=== PATIENT | female | born 1980 | race Caucasian/White ===

== ENCOUNTER 2021-09-24 13:15 | Inpatient (IN) | payer MEDICAID, SELFPAY ==
[2021-09-24] VITALS (8 sets, daily range): BP systolic 102–124; BP diastolic 62–84; PULSE 65–113; RESP 16–18; TEMP 36.4–37.2; O2SAT 96–98; BMI 33.0; BMI 31.1
--- NOTE | 2021-09-24 13:21 | ED.RN ---
PT SENT IN BY [facility] IN [place]. PT IS IN A [facility] THERE. CINDY DICKENS IS THE DIRECTOR AND POINT OF CONTACT. PHONE NUMBER IS [phone]. TRANSPORTED TO FACILITY BY [facility] STAFF. Raffaele GONZALEZ RN [id number]
[2021-09-24 13:38] LABS: Bacteria 0 SEEN /hpf (None Seen); Mucous, Urine 0 SEEN /hpf (<or=2+); White Blood Cells 0 SEEN /hpf (0-5)
[2021-09-24 13:39] LABS: Color, Urine Yellow (Yellow); Glucose, Dipstick Normal (Normal); Ketone-Dipstick Negative (Negative); Leukocyte Esterase-Dipstick Negative /ul (Negative); Nitrite-Dipstick Negative (Negative); Occult Blood-Urine 10 /ul (Negative); Protein-Dipstick 15 mg/dl (Negative); Urine Bilirubin Dipstick Negative (Negative); Urine Clarity Clear (Clear); Urine Urobilinogen Normal (Normal); Urine pH 6.5 (5.0 - 8.0)
--- NOTE | 2021-09-24 13:41 | EX.ED.SAOD ---
HPI History of Present Illness Chief Complaint: Substance Abuse Informant: patient Narrative Narrative: Patient is a 41-year-old female with history of chronic back pain and alcohol abuse as well as per the patient remote history of liver failure presenting for alcohol detox. Patient states that she drinks as much as she can. She is currently [facility] is not allowed to bring alcohol there so she will go to the corner store and get the highest alcohol content beverage she can and drink it before she goes back. She states in the past week she spent $500 on alcohol there. She does have a history of DTs. She states her last drink was this morning. She states she was throwing up because she thinks she had alcohol poisoning. She currently denies any pain. She is complaining of nausea. Does smoke cigarettes, approximate pack a day. 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 No other complaints at this time. [facility] Medical History (Updated 09/24/21 @ 14:25 by Kerrie Trujillo NP, [employer]-C) Alcohol abuse Anxiety Home Medications buspirone [BuSpar] 15 mg PO TID 09/24/21 [History Last Taken Unknown] gabapentin 400 mg PO 4XD 09/24/21 [History Last Taken Unknown] olanzapine [Zyprexa] mg DAILY 09/24/21 [History Last Taken Unknown] Allergy/AdvReac Type Severity Reaction Status Date / Time ketorolac [From Toradol] Allergy Rash Verified 09/24/21 13:16 nitrofurantoin Allergy Swelling Verified 09/24/21 13:16 [From Macrobid] Family History (Updated 09/24/21 @ 14:23 by Kerrie Trujillo NP, [employer]) Mother Alcoholic cirrhosis Father Hypertension Surgical History (Updated 09/24/21 @ 14:25 by Kerrie Trujillo NP, [employer] PRINTER-C) H/O tubal ligation H/O: hysterectomy Laryngeal papilloma Social History (Updated 09/24/21 @ 14:25 by Kerrie Trujillo NP, [employer]INTER-C) Smoking Status: Current every day smoker tobacco type: cigarettes alcohol intake: current substance use type: does not use ROS ROS ED Constitutional Constitutional ED: Denies chills or fever(s) Eyes Eyes: Denies change in vision ENT ENT ED: Denies rhinorrhea or sore throat Cardiovascular Cardiovascular: Denies chest pain Respiratory/Chest Respiratory/Chest: Denies cough or dyspnea Gastrointestinal Gastrointestinal: Reports nausea and vomiting; Denies abdominal pain, constipation or diarrhea Musculoskeletal Musculoskeletal: Denies arthralgias or myalgias Integumentary Denies rash Neurologic Neurologic: Denies headache(s) or weakness Psychiatric Psychiatric: Denies depression or suicidal thoughts EXAM Physical Exam Const Vital Signs: 09/24/21 13:16 09/24/21 14:14 09/24/21 14:25 Temperature 97.6 F L 98.9 F 98.9 F Temperature Source Temporal Temporal Temporal Pulse Rate 113 H 94 84 Respiratory Rate 16 18 18 Blood Pressure 124/77 H 113/84 H 113/84 H Blood Pressure Mean 92 93 93 Blood Pressure Source Monitor Blood Pressure Position Sitting Blood Pressure Location Right Arm Pulse Ox 97 97 97 Oxygen Delivery Method Room Air Room Air Room Air Positive well nourished and well developed General Appearance ED: well developed and NAD HEENT Reports moist mucous membranes atraumatic Eyes PERRL and EOMs intact bilaterally General Eye ED: Negative for scleral icterus Neck no lymphadenopathy and supple Chest Wall inspection of chest normal Resp normal respiratory effort and clear to auscultation bilaterally Cardio regular rhythm and no murmurs Rate: tachycardic GI soft to palpation, non-tender, non-distended and no masses Extremity General Extremety ED: Negative for edema or tenderness General Extremity: Negative for edema Neuro oriented x3 Sensorium / Orientation: alert Motor Exam: Negative for general weakness Psych mental status grossly normal Mood & Affect: anxious Skin General Skin Exam: Negative for jaundice Lesions: no lesions Rashes: no rashes MDM MDM MDM Narrative Medical decision making narrative: Patient evaluated for request of alcohol detox. Patient is mildly tachycardic however she is normotensive. Is given dose of Zofran as well as oral phenobarb. Will admit for inpatient alcohol detoxification. Patient is agreeable to this plan of care. She remains hemodynamically stable in the emergency room. Lab Data Attestation: I reviewed the patient's lab results. Labs: Laboratory Results - last 24 hr 09/24/21 09/24/21 09/24/21 13:30 13:30 13:47 WBC 7.8 RBC 4.79 Hgb 14.9 Hct 43.5 MCV 90.8 MCH 31.1 MCHC 34.3 RDW Std Deviation 38.9 RDW Coeff of Michel 11.7 Plt Count 285 MPV 9.2 Immature Gran % (Auto) 0.300 Neut % (Auto) 64.5 Lymph % (Auto) 26.7 [place] % (Auto) 7.3 Eos % (Auto) 0.6 Baso % (Auto) 0.6 Absolute Neuts (auto) 5.1 Absolute Lymphs (auto) 2.09 Nucleated RBC % 0 Sodium Potassium Chloride Carbon Dioxide Anion Gap BUN Creatinine Estim Creat Clear Calc Est GFR (MDRD) Af Amer Est GFR (MDRD) Non-Af BUN/Creatinine Ratio Glucose Calcium Total Bilirubin AST ALT Alkaline Phosphatase Total Protein Albumin Globulin Albumin/Globulin Ratio Serum , Qual Urine Color Yellow Urine Clarity Clear Urine pH 6.5 Ur Specific [place] 1.010 Urine Protein 15 H Urine Glucose (UA) Normal Urine Ketones Negative Urine Occult Blood 10 H Urine Nitrite Negative Urine Bilirubin Negative Urine Urobilinogen Normal Ur Leukocyte Esterase Negative Urine RBC 0-5 SEEN Urine WBC 0 SEEN Ur Squamous Epith Cells 0-5 SEEN Urine Bacteria 0 SEEN Urine Mucus 0 SEEN Urine Opiates Screen NEGATIVE Urine Methadone Screen NEGATIVE Ur Barbiturates Screen NEGATIVE Ur Phencyclidine Scrn NEGATIVE Ur Amphetamines Screen NEGATIVE MDMA (Ecstasy) Screen NEGATIVE U Benzodiazepines Scrn NEGATIVE Urine Cocaine Screen NEGATIVE U Cannabinoids Screen NEGATIVE Ur Drug Screen Comment Ethyl Alcohol 09/24/21 09/24/21 09/24/21 13:47 13:47 13:47 WBC RBC Hgb Hct MCV MCH MCHC RDW Std Deviation RDW Coeff of Michel Plt Count MPV Immature Gran % (Auto) Neut % (Auto) Lymph % (Auto) [place] % (Auto) Eos % (Auto) Baso % (Auto) Absolute Neuts (auto) Absolute Lymphs (auto) Nucleated RBC % Sodium 137 Potassium 3.6 Chloride 103 Carbon Dioxide 27.0 Anion Gap 7 BUN 13 Creatinine 0.84 Estim Creat Clear Calc 76.11 Est GFR (MDRD) Af Amer 96 Est GFR (MDRD) Non-Af 79 BUN/Creatinine Ratio 15.4 Glucose 97 Calcium 8.8 Total Bilirubin 0.30 AST 25 ALT 28 Alkaline Phosphatase 60 Total Protein 7.9 Albumin 3.8 Globulin 4.1 Albumin/Globulin Ratio 0.9 Serum , Qual NEGATIVE Urine Color Urine Clarity Urine pH Ur Specific [place] Urine Protein Urine Glucose (UA) Urine Ketones Urine Occult Blood Urine Nitrite Urine Bilirubin Urine Urobilinogen Ur Leukocyte Esterase Urine RBC Urine WBC Ur Squamous Epith Cells Urine Bacteria Urine Mucus Urine Opiates Screen Urine Methadone Screen Ur Barbiturates Screen Ur Phencyclidine Scrn Ur Amphetamines Screen MDMA (Ecstasy) Screen U Benzodiazepines Scrn Urine Cocaine Screen U Cannabinoids Screen Ur Drug Screen Comment Ethyl Alcohol 21.0 Discharge Plan Dx/Rx/DC Orders Clinical Impression: Alcohol abuse, Tachycardia Disposition Disposition: Acute Care Hospital [facility]
[2021-09-24 13:45] LABS: Red Blood Cells-Urine 0-5 SEEN /hpf (0-5); Squamous Epithelial Cells - UA 0-5 SEEN /hpf (5-10)
[2021-09-24] MEDS: Ondansetron 4 MG/2 ML Vial IV (13:46)
[2021-09-24] MEDS: Phenobarbital 32.4 MG Tablet 97.2 MG PO (13:52)
[2021-09-24 13:57] LABS: Absolute Lymphocyte Count 2.09 X10^3/uL (0.83-4.51); Absolute Neutrophil Count 5.1 X10^3/uL (2.0-7.7); Basophil# 0.05 X10^3/uL; Basophil% 0.6 % (0-1); Eosinophil# 0.05 X10^3/uL; Eosinophils% 0.6 % (0-5); Hematocrit 43.5 % (37-47); Hemoglobin 14.9 g/dL (12.0-15.0); Lymphocyte # 2.09 X10^3/ul (0.83-4.51); Lymphocyte % 26.7 % (19-41); Mean Corp Hgb Conc 34.3 g/dL (32-36); Mean Corpuscular Hgb 31.1 pg (27.0-32.0); Mean Corpuscular Volume 90.8 fL (81-99); Mean Platelet Vol. 9.2 fl (6.2-12.0); Monocyte# 0.57 X10^3/uL; Monocyte% 7.3 % (0-10); NRBC Flagged by Analyzer 0 % (0-5); Neutrophil # 5.06 X10^3/uL (2.7-7.7); Neutrophil % 64.5 % (47-70); Platelet Count 285 K/mm3 (150-450); RBC Distribution Width CV 11.7 % (11.6-14.6); RBC Distribution Width SD 38.9 fl (35.1-43.9); Red Blood Count 4.79 M/mm3 (4.2-5.4); White Blood Count 7.8 K/mm3 (4.4-11.0)
[2021-09-24 13:58] LABS: Amphetamine Urine VISTA NEGATIVE (<1000 ng/mL); Barbiturate Urine VISTA NEGATIVE (< 200 ng/mL); Benzodiazepine Urine VISTA NEGATIVE (< 200 ng/mL); Cocaine Urine VISTA NEGATIVE (< 300 ng/mL); Ecstacy Urine VISTA NEGATIVE (< 500 ng/mL); Methadone Urine VISTA NEGATIVE (< 300 ng/mL); PCP Urine VISTA NEGATIVE (< 25 ng/mL); THC Urine VISTA NEGATIVE (< 50 ng/mL); Vista UDS pH Range 6
[2021-09-24 14:09] LABS: Internal QC Validated? YES +Cl - CLEAR BKGD; Pregnancy, Serum, hCG Quali. NEGATIVE Negative
--- NOTE | 2021-09-24 14:14 | PCM.HP.STD ---
Documented by User: Kerrie Trujillo NP, [employer] 09/24/21 14:33 HPI - General HPI Narrative SUSIE PITTS, is a 41 F who presents to the emergency room requesting detox from alcohol. Patient reports an extensive history of alcohol abuse starting at age 14. She states she has been through several detox programs including inpatient treatment program. Patient is unable to state exactly how much she drinks as she states she drinks till I get drunk. Reports she goes to the [employer] and buys vodka as well as mixed drinks and beer. Reports spending about $500/week on alcohol. Currently lives in [facility] for the past 40-50 days. She reports a history of liver failure. Currently reports nausea and tremors. Her last drink was at 8 this morning. Reports history of seizure and DTs with withdrawal. Patient reports a past medical history of chronic alcohol abuse, tobacco dependence, laryngeal papilloma status post multiple surgeries, PTSD/bipolar depression/anxiety. [facility] Medical History Alcohol abuse Anxiety Bipolar disorder Depression Smoker Home Medications aspirin-caffeine [Jordyn Back and Body] 2 tab PO DAILY PRN 09/24/21 [History Last Taken 09/22/21] buspirone [BuSpar] 15 mg PO BID 09/24/21 [History Last Taken 09/23/21] gabapentin 400 mg PO TID 09/24/21 [History Last Taken 09/23/21] olanzapine [Zyprexa] 5 mg PO BID 09/24/21 [History Last Taken 09/22/21] Allergy/AdvReac Type Severity Reaction Status Date / Time ketorolac [From Toradol] Allergy Rash Verified 09/24/21 13:16 nitrofurantoin Allergy Swelling Verified 09/24/21 13:16 [From Macrobid] Family History (Updated 09/24/21 @ 14:23 by Kerrie Trujillo NP, [employer]) Mother Alcoholic cirrhosis Father Hypertension Surgical History (Updated 09/24/21 @ 14:25 by Kerrie Trujillo NP, [employer]) H/O tubal ligation H/O: hysterectomy Laryngeal papilloma Social History (Updated 09/24/21 @ 14:25 by Kerrie Trujillo NP, [employer]) Smoking Status: Current every day smoker tobacco type: cigarettes alcohol intake: current substance use type: does not use ROS Constitutional Constitutional: Denies change in weight, chills, fatigue, fever(s) or weakness Cardiovascular Cardiovascular: Denies chest pain, edema, lightheadedness, palpitations or syncope Respiratory/Chest Respiratory/Chest: Denies cough, dyspnea, productive cough, shortness of breath at rest, shortness of breath with exertion or wheezing Gastrointestinal Gastrointestinal: Reports nausea; Denies abdominal pain, constipation, diarrhea or vomiting Genitourinary Genitourinary: Denies burning urination, difficulty urinating, dysuria, hematuria, urinary frequency, urinary incontinence or urinary urgency Musculoskeletal Musculoskeletal: Denies back pain, joint pain or muscle weakness Integumentary Integumentary: Denies erythema, lesions, rash or wounds Neurologic Neurologic: Denies abnormal speech, confusion, dizziness, focal weakness, numbness, paresthesias, seizure-like activity or syncope Psychiatric Psychiatric: Reports anxiety and depression Hematologic/Lymphatic Hematologic/Lymphatic: Denies anemia, easy bleeding or easy bruising Allergic/Immunologic Allergic/Immunologic: Denies hives or asthma Vital Signs Vital Signs Vital Signs: 09/24/21 13:16 Temperature 97.6 F L Temperature Source Temporal Pulse Rate 113 H Respiratory Rate 16 Blood Pressure 124/77 H Blood Pressure Mean 92 Pulse Ox 97 Oxygen Delivery Method Room Air Weight Weight: 192 lb 14.472 oz Body Mass Index (BMI) 33.0 Physical Exam Const alert and oriented x3 Constitutional Narrative: Appears older than stated age Orientation / Consciousness: awake, oriented to person, oriented to place and oriented to time HEENT normocephalic Mouth: dry mucous membranes Eyes PERRL, EOMs intact bilaterally and conjunctivae normal Neck no lymphadenopathy Resp normal respiratory effort and clear to auscultation bilaterally Cardio regular rate, regular rhythm and no murmurs Peripheral Pulses: pulses 2+ throughout GI normal to inspection, nondistended, normoactive bowel sounds, non-tender and non-distended Extremity normal to inspection Skin no rashes or lesions noted Lesions: no lesions Rashes: no rashes Trauma: no lacerations or abrasions Neuro CN's II-XII intact bilaterally, no focal motor deficits, no sensory deficits noted and deep tendon reflexes 2+ bilaterally Psych mental status grossly normal Mood & Affect: anxious Results Lab / Micro Data Result Diagrams: 09/24/21 13:47 09/24/21 13:47 Labs: Laboratory Results - last 24 hr 09/24/21 13:30: Urine Opiates Screen NEGATIVE, Urine Methadone Screen NEGATIVE, Ur Barbiturates Screen NEGATIVE, Ur Phencyclidine Scrn NEGATIVE, Ur Amphetamines Screen NEGATIVE, MDMA (Ecstasy) Screen NEGATIVE, U Benzodiazepines Scrn NEGATIVE, Urine Cocaine Screen NEGATIVE, U Cannabinoids Screen NEGATIVE, Ur Drug Screen Comment 09/24/21 13:30: Urine Color Yellow, Urine Clarity Clear, Urine pH 6.5, Ur Specific [place] 1.010, Urine Protein 15 H, Urine Glucose (UA) Normal, Urine Ketones Negative, Urine Occult Blood 10 H, Urine Nitrite Negative, Urine Bilirubin Negative, Urine Urobilinogen Normal, Ur Leukocyte Esterase Negative, Urine RBC 0-5 SEEN, Urine WBC 0 SEEN, Ur Squamous Epith Cells 0-5 SEEN, Urine Bacteria 0 SEEN, Urine Mucus 0 SEEN 09/24/21 13:47: WBC 7.8, RBC 4.79, Hgb 14.9, Hct 43.5, MCV 90.8, MCH 31.1, MCHC 34.3, RDW Std Deviation 38.9, RDW Coeff of Michel 11.7, Plt Count 285, MPV 9.2, Immature Gran % (Auto) 0.300, Neut % (Auto) 64.5, Lymph % (Auto) 26.7, [place] % (Auto) 7.3, Eos % (Auto) 0.6, Baso % (Auto) 0.6, Absolute Neuts (auto) 5.1, Absolute Lymphs (auto) 2.09, Nucleated RBC % 0 09/24/21 13:47: Serum , Qual NEGATIVE Assessment & Plan Assessment/Plan (1) Alcohol abuse: PLAN: 1. Acute alcohol withdrawal, chronic alcohol dependence- medical stabilization per protocol. PRN regimen for somatic complaints. CIWA/Ativan protocol. Tox screen negative. Addiction medicine consult. 2. Tobacco dependence- encouraged cessation. Nicotine gum per request. 3. Laryngeal papilloma status post multiple surgeries 4. PTSD/bipolar depression/anxiety-patient states previously followed with psychiatry, recommend continued outpatient follow-up. DVT prophylaxis-not indicated This patient was seen by ROSANNA Blancas under the supervision of Dr. Metcalf. Time spent examining patient, reviewing data and subsequent management of care: 18 minutes Documented by User: Dr. Fernando Metcalf DO 09/24/21 17:08 HPI - General General Date of Admission: 09/24/21 [facility] Medical History Alcohol abuse Anxiety Bipolar disorder Depression Smoker Home Medications aspirin-caffeine [Jordyn Back and Body] 2 tab PO DAILY PRN 09/24/21 [History Last Taken 09/22/21] buspirone [BuSpar] 15 mg PO BID 09/24/21 [History Last Taken 09/23/21] gabapentin 400 mg PO TID 09/24/21 [History Last Taken 09/23/21] olanzapine [Zyprexa] 5 mg PO BID 09/24/21 [History Last Taken 09/22/21] Allergy/AdvReac Type Severity Reaction Status Date / Time ketorolac [From Toradol] Allergy Rash Verified 09/24/21 13:16 nitrofurantoin Allergy Swelling Verified 09/24/21 13:16 [From Macrobid] Family History (Updated 09/24/21 @ 14:23 by Kerrie Trujillo [employer] TILE SETTER, [employer]C) Mother Alcoholic cirrhosis Father Hypertension Surgical History (Updated 09/24/21 @ 14:25 by Kerrie Trujillo NP, [employer]) H/O tubal ligation H/O: hysterectomy Laryngeal papilloma Social History (Updated 09/24/21 @ 14:25 by Kerrie Trujillo [employer]LE [employer]TER, [employer]C) Smoking Status: Current every day smoker tobacco type: cigarettes alcohol intake: current substance use type: does not use Results Lab / Micro Data Result Diagrams: 09/24/21 13:47 09/24/21 13:47 Charges/Coding Addendum Addendum: Patient was seen and examined dependently of Kerrie Trujillo today, she came to the emergency room today requesting services for alcohol detox. Patient is very vague on the amount of alcohol that she drinks on a daily basis, she states she can go through fifth of low proof vodka and 1 afternoon easily. Patient also admits to drinking beer. Patient denies using any other drugs of abuse. Patient complains of feeling anxious and nervous at time of my examination. On examination she appeared in good health and spirits, she does not appear to be in any distress. Vital signs as documented. Skin warm and dry and without overt rashes. Neck without JVD, thyroid appears normal, trachea is midline, neck is supple. Lungs clear, normal air movement was noted. Heart exam notable for regular rhythm, normal sounds and absence of murmurs, rubs or gallops. Abdomen unremarkable and without evidence of organomegaly, masses, or abdominal aortic enlargement, bowel sounds are present in all 4 quadrants, no abdominal tenderness was noted. Extremities nonedematous, no cyanosis was noted, no clubbing was noted. Neuro: Cranial nerves II through XII are grossly intact, no focal motor deficits were noted, sensation to light touch and pinprick is intact, motor exam 5/5 throughout. Psych: Patient is alert and oriented x3, patient appears anxious and has forced speech Impression: #1 acute alcohol withdrawal-patient will be admitted to [facility] [place], orders were entered using the alcohol detox order set, she will need to be seen by addiction licensed social worker tomorrow #2 chronic alcoholism-patient states she has been through detox once before but it has been several years ago and it was not at this hospital. I reviewed Kerrie Trujillo's history and physical including her medical assessment and plan of care and with the above additions endorse it. Total clinical time spent by myself addressing the patient's issues, reviewing the data, and collaborating with patient's care team: 32 minutes Visit Charges Inpatient E&M: 55596 Init Hosp L2
[2021-09-24 14:17] LABS: ALB/GLOB Ratio 0.9 RATIO (0.9-2.4); AST(SGOT) 25 U/L (15-37); Alanine Aminotransfer ALT/SGPT 28 U/L (13-56); Albumin, Serum 3.8 g/dL (3.2-5.0); Alkaline Phosphatase 60 U/L (45-117); Anion Gap 7 (5-15); BUN 13 mg/dL (7-18); BUN/Creat Ratio 15.4 RATIO (10-20); Calcium,Total 8.8 mg/dL (8.5-10.1); Chloride 103 mmol/L (98-107); Creatinine, Serum 0.84 mg/dL (0.55-1.02); EST Glomerular Filtration Rate 79 mL/min (>60); Est Glom Filt Rate - Afr Amer 96 mL/min (>60); Estimated Creatinine Clearance 76.11 ml/min; Globulin 4.1 g/dL (2.2-4.2); Glucose 97 mg/dL (74-106); Potassium 3.6 mmol/L (3.5-5.1); Protein, Total 7.9 g/dL (6.4-8.2); Sodium Level 137 mmol/L (136-145)
--- NOTE | 2021-09-24 15:01 | CASEMGMT ---
Social Work Telephone call to addiction therapies, [facility]. Voicemail left that patient has been admitted to [facility]. Romario Ham MSW, [facility]
[2021-09-24] MEDS: Ondansetron 8 MG Tablet PO (17:09)
[2021-09-24] MEDS: Dicyclomine 10 MG Capsule 20 MG PO (17:10)
[2021-09-24] MEDS: Gabapentin 300 MG Capsule PO (17:10)
[2021-09-24] MEDS: LORazepam 1 MG Tablet 2 MG PO ×2 (17:11→20:47)
[2021-09-24] MEDS: Phenobarbital 32.4 MG Tablet 64.8 MG PO ×3 (17:13→23:40)
[2021-09-24] MEDS: hydrOXYzine PAM 25 MG Capsule 50 MG PO ×2 (18:20→23:40)
[2021-09-24] MEDS: Loperamide 2 MG Capsule PO (18:20)
[2021-09-24] MEDS: traZODone 100 MG Tablet PO (20:47)
[2021-09-24] MEDS: busPIRone 15 MG TABLET PO (20:48)
[2021-09-24] MEDS: Nicotine Polacrilex 2 MG GUM PO (20:49)
[2021-09-25] VITALS (7 sets, daily range): BP systolic 103–117; BP diastolic 60–75; PULSE 70–81; RESP 16–18; TEMP 36.6–36.9; O2SAT 94–98
[2021-09-25] MEDS: Phenobarbital 32.4 MG Tablet 64.8 MG PO ×5 (04:11→20:18)
[2021-09-25] MEDS: Ondansetron 8 MG Tablet PO (04:11)
[2021-09-25] MEDS: Gabapentin 300 MG Capsule PO ×2 (04:11→16:24)
[2021-09-25] MEDS: busPIRone 15 MG TABLET PO ×3 (06:14→20:30)
[2021-09-25] MEDS: Nicotine Polacrilex 2 MG GUM PO ×4 (08:52→20:40)
[2021-09-25] MEDS: Thiamine Hydrochloride 100 MG Tablet PO (09:00)
[2021-09-25] MEDS: hydrOXYzine PAM 25 MG Capsule 50 MG PO ×3 (09:00→20:19)
[2021-09-25] MEDS: OLANZapine 5 MG/TAB TAB.RAPDIS PO (09:01)
[2021-09-25] MEDS: Folic Acid 1 MG Tablet PO (09:01)
--- NOTE | 2021-09-25 10:44 | PN.HOSP_ITS ---
Documented by User: Ronaldo DYER 09/25/21 10:53 Subjective Subjective Patient is a 41-year-old female comfortably resting in bed, alert and oriented x3. Patient reports only mild withdrawal symptoms with tremors and nausea. Reports that these symptoms are controlled with current medications. Does not appear in acute distress. Objective Data Objective Data Vital Signs: Vital Signs Temp Pulse Resp BP Pulse Ox 97.9 F 80 18 116/60 94 09/25/21 08:44 09/25/21 08:44 09/25/21 08:44 09/25/21 08:44 09/25/21 08:44 Oxygen Delivery Method Room Air Weight: 181 lb 3.52 oz Body Mass Index (BMI) 31.1 Intake & Output: Intake and Output for Last 24 Hours 09/23/21 09/24/21 09/25/21 23:59 23:59 23:59 Intake Total 1000 / 1000 Balance 1000 / 1000 Lab / Micro Data Result Diagrams: 09/24/21 13:47 09/24/21 13:47 Labs: Laboratory Results - last 24 hr 09/24/21 13:30: Urine Opiates Screen NEGATIVE, Urine Methadone Screen NEGATIVE, Ur Barbiturates Screen NEGATIVE, Ur Phencyclidine Scrn NEGATIVE, Ur Amphetamines Screen NEGATIVE, MDMA (Ecstasy) Screen NEGATIVE, U Benzodiazepines Scrn NEGATIVE, Urine Cocaine Screen NEGATIVE, U Cannabinoids Screen NEGATIVE, Ur Drug Screen Comment 09/24/21 13:30: Urine Color Yellow, Urine Clarity Clear, Urine pH 6.5, Ur Specific [place] 1.010, Urine Protein 15 H, Urine Glucose (UA) Normal, Urine Ketones Negative, Urine Occult Blood 10 H, Urine Nitrite Negative, Urine Bilirubin Negative, Urine Urobilinogen Normal, Ur Leukocyte Esterase Negative, Urine RBC 0-5 SEEN, Urine WBC 0 SEEN, Ur Squamous Epith Cells 0-5 SEEN, Urine Bacteria 0 SEEN, Urine Mucus 0 SEEN 09/24/21 13:47: WBC 7.8, RBC 4.79, Hgb 14.9, Hct 43.5, MCV 90.8, MCH 31.1, MCHC 34.3, RDW Std Deviation 38.9, RDW Coeff of Michel 11.7, Plt Count 285, MPV 9.2, Immature Gran % (Auto) 0.300, Neut % (Auto) 64.5, Lymph % (Auto) 26.7, [place] % (Auto) 7.3, Eos % (Auto) 0.6, Baso % (Auto) 0.6, Absolute Neuts (auto) 5.1, Absolute Lymphs (auto) 2.09, Nucleated RBC % 0 09/24/21 13:47: Serum , Qual NEGATIVE 09/24/21 13:47: Sodium 137, Potassium 3.6, Chloride 103, Carbon Dioxide 27.0, A nion Gap 7, BUN 13, Creatinine 0.84, Estim Creat Clear Calc 76.11, Est GFR (MDRD) Af Amer 96, Est GFR (MDRD) Non-Af 79, BUN/Creatinine Ratio 15.4, Glucose 97, Calcium 8.8, Total Bilirubin 0.30, AST 25, ALT 28, Alkaline Phosphatase 60, Total Protein 7.9, Albumin 3.8, Globulin 4.1, Albumin/Globulin Ratio 0.9 09/24/21 13:47: Ethyl Alcohol 21.0 Physical Exam Const alert, oriented x3 and no apparent distress HEENT head/scalp atraumatic and moist oral mucous membranes Head and Scalp: normocephalic Eyes PERRL, EOMs intact bilaterally and conjunctivae normal Neck no lymphadenopathy, supple and no JVD Resp normal respiratory effort, no retractions and no use of accessory muscles Cardio regular rate, regular rhythm and no JVD GI normal to inspection, nondistended, normoactive bowel sounds and soft to palpation Extremity normal to inspection Skin no rashes or lesions noted, no wounds and skin turgor normal Neuro CN's II-XII intact bilaterally Psych affect normal Assessment & Plan Assessment/Plan (1) Alcohol abuse: PLAN: Day 1 Discharge planning: Current plan is for patient to discharge home when medically ready. 1) acute alcohol withdrawal/chronic alcohol abuse CIWA-AR score 9. Patient reports that her withdrawal symptoms are well controlled on current regimen and only reports mild tremors and nausea. Addiction medicine consult ordered, continue phenobarbital taper taper and folic acid/thiamine supplementation. As needed medications ordered. 2) tobacco abuse Encourage cessation, nicotine patch ordered. 3) PTSD/bipolar disorder/anxiety Continue buspirone, recommend outpatient psychiatry follow-up. DVT prophylaxis -low risk, not indicated Patient seen by Ronaldo James PA-C, under the supervision of Dr. Lara. Time spent on patient care: 8 minutes. Documented by User: Dr. Gita Lara DO 09/25/21 13:49 Subjective Subjective This patient was seen in conjunction with MANISHA Henson. The following represents my own independent history and physical examination. Please see below for addendum the above. Patient states she is still feeling pretty poorly with significant anxiety and tremulousness. She indicates she would like to have outpatient rehab after detox is completed. Awaiting 180 visit. No specific complaints. Denies nausea vomiting or diarrhea. Objective Data Lab / Micro Data Result Diagrams: 09/24/21 13:47 09/24/21 13:47 Physical Exam Const alert, oriented x3 and no apparent distress Constitutional Narrative: Obese middle-aged white female lying in bed, appears comfortable nontoxic Exam Limitations: no limitations Nutritional Appearance: obese HEENT head/scalp atraumatic and moist oral mucous membranes Head and Scalp: normocephalic Resp normal respiratory effort, no retractions, no use of accessory muscles and clear to auscultation bilaterally Auscultation: Negative for crackles, rales, rhonchi or wheezes Cardio regular rate, regular rhythm, S1 normal heart sound, S2 normal heart sound, no murmurs, no rub, no gallops, no clicks and no JVD GI normal to inspection, nondistended, normoactive bowel sounds, soft to palpation, non-tender and non-distended Extremity no clubbing, cyanosis or edema Peripheral Pulses: Yes pulses 2+ throughout Neuro oriented x3, moves all extremities and no focal motor deficits Neuro Narrative: Mild fine tremor Sensorium / Orientation: awake and alert Speech: speech normal Psych Psych Narrative: Affect is flat Assessment & Plan Assessment/Plan (1) Alcohol abuse: PLAN: Assessment: Acute alcohol withdrawal Chronic alcohol abuse Tobacco abuse PTSD Bipolar disorder Obesity Plan: -Continue phenobarbital taper -Continue supportive medications -Awaiting 180 input -Nicotine patch available Charges/Coding Visit Charges Inpatient E&M: 21416 Subs Hosp L2
--- NOTE | 2021-09-25 15:12 | CHAPLAIN ---
Type of Pastoral Visit _x__ Initial Visit ___ Follow-up Visit ___ On-call Visit ___ General Patient Visit ___ Spiritual Assessment ___ Family Conference ___ Bereavement ___ Rapid Response ___ Code Blue ___ Other (describe below) Pastoral Care Referral From _x__ Patient ___ Family ___ Nurse ___ Physician ___ Lapel Padder Blindstitch ___ Manufacturing Maintenance Mechanic ___ Other (describe below) Sacrament/Intervention ___ Active listening ___ Anointing ___ Hindu ___ Bereavement ___ Communion ___ Crys exploration ___ ___ Life review ___ Prayer ___ Reconciliation ___ Sacrament of Sick _x__ Supportive presence ___ Wedding ___ Other (describe below) Pastoral Comments offer of support and presence given to patient; pt voice is very weak and she is lying down and turned away; pt states that she would like to wait for a visit and is very tired; pt expresses thanks for the offer
[2021-09-25] MEDS: 0.9% Saline Lock 10 ML Syringe IV (15:15)
--- NOTE | 2021-09-25 15:38 | ADDICTION ---
This hand sign writer met with PT to conduct ASAM, MSE, AUDIT, DUDIT assessments and to plan for d/c. PT A+Ox4 and participated actively. All assessments completed and placed in PT's chart. PT plans to f/u with [facility] for follow-up treatment services, however she reported that she wanted to call and make an appointment herself. Phone number was given. PT did not indicate a need for transportation post d/c from [facility].
[2021-09-25] MEDS: LORazepam 1 MG Tablet 2 MG PO (20:29)
[2021-09-26] MEDS: Phenobarbital 32.4 MG Tablet 64.8 MG PO ×6 (00:41→20:41)
[2021-09-26 04:47] LABS: Absolute Neutrophil Count 3.7 X10^3/uL (2.0-7.7); Basophil# 0.05 X10^3/uL; Basophil% 0.7 % (0-1); Eosinophil# 0.13 X10^3/uL; Eosinophils% 1.9 % (0-5); Hematocrit 39.1 % (37-47); Lymphocyte % 35.6 % (19-41); Mean Corp Hgb Conc 33.2 g/dL (32-36); Mean Corpuscular Hgb 31.2 pg (27.0-32.0); Mean Corpuscular Volume 93.8 fL (81-99); Mean Platelet Vol. 9.6 fl (6.2-12.0); Monocyte# 0.47 X10^3/uL; NRBC Flagged by Analyzer 0 % (0-5); Neutrophil # 3.68 X10^3/uL (2.7-7.7); Neutrophil % 54.5 % (47-70); Platelet Count 204 K/mm3 (150-450); RBC Distribution Width CV 11.7 % (11.6-14.6); RBC Distribution Width SD 40.2 fl (35.1-43.9); Red Blood Count 4.17 M/mm3 (4.2-5.4); White Blood Count 6.8 K/mm3 (4.4-11.0)
[2021-09-26 05:06] LABS: Anion Gap 5 (5-15); BUN 16 mg/dL (7-18); BUN/Creat Ratio 16.8 RATIO (10-20); Calcium,Total 8.1 mg/dL (8.5-10.1); Chloride 108 mmol/L (98-107); Creatinine, Serum 0.96 mg/dL (0.55-1.02); EST Glomerular Filtration Rate 68 mL/min (>60); Est Glom Filt Rate - Afr Amer 83 mL/min (>60); Estimated Creatinine Clearance 66.59 ml/min; Glucose 120 mg/dL (74-106); Potassium 3.6 mmol/L (3.5-5.1); Sodium Level 137 mmol/L (136-145)
[2021-09-26] MEDS: busPIRone 15 MG TABLET PO ×3 (05:19→21:03)
[2021-09-26 05:23] VITALS: BP 109/66; PULSE 75; RESP 17; TEMP 36.6; O2SAT 99
--- NOTE | 2021-09-26 07:35 | PCM.PN.HOSP ---
Subjective Subjective Follow-up for acute alcohol withdrawal syndrome Patient complain of anxiety restlessness. Bowel spasm abdominal pain. Chronic muscle aches. Objective Data Objective Data Vital Signs: Vital Signs Temp Pulse Resp BP Pulse Ox 97.8 F 75 17 109/66 99 09/26/21 05:23 09/26/21 05:23 09/26/21 05:23 09/26/21 05:23 09/26/21 05:23 Oxygen Delivery Method Room Air Weight: 181 lb 3.52 oz Body Mass Index (BMI) 31.1 Intake & Output: Intake and Output for Last 24 Hours 09/24/21 09/25/21 09/26/21 23:59 23:59 23:59 Intake Total 1000 / 1000 Balance 1000 / 1000 Medical Nutrition Assessment Dietitian: Malnutrition Criteria Met Start: 09/25/21 11:54 Freq: Status: Active Protocol: Document 09/25/21 11:56 RMA (Rec: 09/25/21 11:56 RMA [id number]) Nutrition Malnutrition Evidence of Malnutrition Exists Yes Malnutrition (severe): Social/Behavioral/ Environmental Evidenced By Suboptimal Energy Intake ( Severe),Weight Loss (Severe) Clinical Problem Chronic Disease or Condition Related Malnutrition Etiology Severe protein-calorie malnutrition in the context of social circumstance related to inadequate oral intake and alcohol abuse Signs/Symptoms as evidenced by ~10% wt loss x past 1-2 months per patient report and PO meeting less than 50% estimated nutrition needs Status Active Problem Recommendation Dietitian Recommendations/Changes Continue regular diet with snacks between meals as per ALMA Early. ONS if PO fails at meals, pt does not want any at this time . Encouraged increased intake of milk and chocolate milk since patient is refusing ensure. Lab / Micro Data Result Diagrams: 09/26/21 04:19 09/26/21 04:19 Labs: Laboratory Results - last 24 hr 09/26/21 04:19: WBC 6.8, RBC 4.17 L, Hgb 13.0, Hct 39.1, MCV 93.8, MCH 31.2, MCHC 33.2, RDW Std Deviation 40.2, RDW Coeff of Michel 11.7, Plt Count 204, MPV 9.6, Immature Gran % (Auto) 0.300, Neut % (Auto) 54.5, Lymph % (Auto) 35.6, [place] % (Auto) 7.0, Eos % (Auto) 1.9, Baso % (Auto) 0.7, Absolute Neuts (auto) 3.7, Absolute Lymphs (auto) 2.40, Nucleated RBC % 0 09/26/21 04:19: Sodium 137, Potassium 3.6, Chloride 108 H, Carbon Dioxide 24.0, Anion Gap 5, BUN 16, Creatinine 0.96, Estim Creat Clear Calc 66.59, Est GFR (MDRD) Af Amer 83, Est GFR (MDRD) Non-Af 68, BUN/Creatinine Ratio 16.8, Glucose 120 H, Calcium 8.1 L Physical Exam Narrative Physical exam General: Alert, Oriented x3, Cooperative HEENT: Atraumatic, PERRLA, EOMI, Normocephalic Oral: No Gingival or Mucosal Lesions/ Ulcerations Neck: Supple, No JVD, Negative Carotid Bruits Lungs: Air entry diminished in bilateral lung bases. No crepitation/rhonchi Cardiovascular: Regular rate, Regular Rhythm, Normal S1, Normal S2, No murmurs Abdomen: Bowel Sounds Present, Soft, Non Tender, Non-Distended : No renal angle tenderness. No suprapubic tenderness. Extremities: No edema, Capillary Refill Less than 3 Seconds Skin: No rashes, No breakdown Musculoskeletal: No Tenderness to Palpation of Joints or Extremities Neurological: Cranial nerves II-XII grossly intact, DTR 2+/4 and Symmetrical, Neuro grossly intact Psych/Mental Status: Flat affect. Assessment & Plan Assessment/Plan (1) Alcohol abuse: PLAN: 1. Acute alcohol withdrawal syndrome with chronic alcohol use disorder with dependence and tolerance: Patient is being admitted on Medr floor. On phenobarbitone along with other adjunctive supportive medications as needed for control of symptoms. 180s been consulted. On nicotine patch. On CIWA monitoring 2. Patient also with history of chronic nicotine use/cigarette smoking, PTSD, bipolar disorder and mild obesity grade 1. 3. DVT prophylaxis, low risk: Early ambulation encouraged. No prophylaxis indicated Charges/Coding Visit Charges Inpatient E&M: 45923 Subs Hosp L2
[2021-09-26 08:45] VITALS: BP 111/66; PULSE 81; RESP 18; TEMP 36.4; O2SAT 97
[2021-09-26] MEDS: Thiamine Hydrochloride 100 MG Tablet PO (08:49)
[2021-09-26] MEDS: Folic Acid 1 MG Tablet PO (08:49)
[2021-09-26] MEDS: Nicotine Polacrilex 2 MG GUM PO ×3 (08:50→21:05)
[2021-09-26] MEDS: OLANZapine 5 MG/TAB TAB.RAPDIS PO (08:50)
[2021-09-26] MEDS: LORazepam 1 MG Tablet 2 MG PO ×2 (08:58→16:53)
--- NOTE | 2021-09-26 15:10 | CHAPLAIN ---
Type of Pastoral Visit ___ Initial Visit ___ Follow-up Visit ___ On-call Visit ___ General Patient Visit ___ Spiritual Assessment ___ Family Conference ___ Bereavement ___ Rapid Response ___ Code Blue ___ Other (describe below) Pastoral Care Referral From ___ Patient ___ Family ___ Nurse ___ Physician ___ Passenger Car Conductor ___ Offset Plate Preparation Supervisor ___ Other (describe below) Sacrament/Intervention ___ Active listening ___ Anointing ___ Yazidism ___ Bereavement ___ Communion ___ Crys exploration ___ ___ Life review ___ Prayer ___ Reconciliation ___ Sacrament of Sick ___ Supportive presence ___ Wedding ___ Other (describe below) Pastoral Comments return visit today to patient who is awake; pt sits up in bed this time; pt states that she is okay in a very weak voice; offer of support and the role of the commercial real estate manager; pt says you can say a prayer if you want but then adds again I'm doing okay; denies any further needs
[2021-09-26] MEDS: Gabapentin 300 MG Capsule PO (15:38)
[2021-09-26 15:42] VITALS: BP 107/69; PULSE 78; RESP 18; TEMP 36.8; O2SAT 99
[2021-09-26] MEDS: hydrOXYzine PAM 25 MG Capsule 50 MG PO (19:39)
--- NOTE | 2021-09-26 19:57 | NURSING ---
Patient called out asking for something for restlessness. She was admitted on 09/24 and has been on a phenobarb taper and getting PRN Ativan. She seems to know all the answers to give in order to get medications. When entering the room patient was laying still with eyes closed. Assessed patient, vitals taken and administered PRN vistaril per order. she was already asking when she could have more meds.
[2021-09-26 20:00] VITALS: BP 112/73; PULSE 90; RESP 18; TEMP 36.8; O2SAT 98
[2021-09-26] MEDS: traZODone 100 MG Tablet PO (20:41)
[2021-09-27] MEDS: Phenobarbital 32.4 MG Tablet 64.8 MG PO ×2 (00:41→06:09)
[2021-09-27] MEDS: Gabapentin 300 MG Capsule PO (00:41)
[2021-09-27 02:35] VITALS: BP 113/75; PULSE 79; RESP 16; TEMP 36.7; O2SAT 98
[2021-09-27] MEDS: busPIRone 15 MG TABLET PO (06:09)
[2021-09-27] MEDS: Nicotine Polacrilex 2 MG GUM PO ×2 (06:09→08:11)
[2021-09-27] MEDS: OLANZapine 5 MG/TAB TAB.RAPDIS PO (08:10)
[2021-09-27] MEDS: Folic Acid 1 MG Tablet PO (08:10)
[2021-09-27] MEDS: Thiamine Hydrochloride 100 MG Tablet PO (08:10)
[2021-09-27] MEDS: hydrOXYzine PAM 25 MG Capsule 50 MG PO (08:14)
--- NOTE | 2021-09-27 08:38 | PCM.DC ---
Discharge Instructions Diet Discharge Diet: No restrictions Activity Discharge Activity: Return to Normal Activity and May Not Drive Weight Bearing Status: Weight bearing as tolerated Dressing / Incision Call your doctor if you observe: Fever of 101 or Higher, Coldness, Increased Pain, Numbness or Tingling, Change in Color, Inability to urinate, Inability to have a bowel movement, Using more than 1 pad per hour, Shortness of breath, Dizziness, Fainting spells, Swelling in the ankles, Chest pain, Prolonged hiccupping, Increased palpitations (irregular heartbeat), Calf discomfort and Uncontrolled pain Follow Up Care Test Results: Test results from this visit will be discussed in further detail at your follow-up appointment, if applicable. Discharge Plan Admission Admit Date/Time: 09/24/21 14:34 Primary Reason for Your Visit: Acute alcohol withdrawal syndrome Attending Provider: Camden Rousseau Primary Care Provider: Care Physician,No Primary Consulting Providers: Fernando Metcalf ; Ceci Roman ; Gita Lara Discharge Orders/Prescriptions Prescriptions: New thiamine HCl (vitamin B1) [Vitamin B-1] 100 mg Tablet 100 mg PO DAILYCM Qty: 30 RF: 2 folic acid 1 mg Tablet 1 mg PO DAILY@0800 Qty: 30 RF: 2 Continued gabapentin 400 mg Capsule 400 mg PO TID RF: 0 olanzapine [Zyprexa] 5 mg Tablet 5 mg PO BID RF: 0 buspirone 15 mg Tablet 15 mg PO BID RF: 0 Jordyn Back and Body 500-32.5 mg Tablet 2 tab PO DAILY PRN (Reason: Pain) RF: 0 Referrals / Follow Up: Care Physician,No Primary [Primary Care Provider] - NOT,DEFINED [NON-STAFF] - Disposition Disposition (needs filled in before D/C Order can be placed): Home, Self Care
--- NOTE | 2021-09-27 08:40 | DS.PCM_ITS ---
Providers Date of Admission: 09/24/21 Date of Discharge: 09/27/21 Primary Care Physician: Marilyn Primary Care Phys Consultations 09/24/21 16:33 Consult: Addiction Medicine Routine Consulting Provider: Ceci Roman Reason for Consult: ETOH withdrawal EMERGENT Consult: No MD Notified: Yes Date Notified: 09/25/21 Time Notified: 09:16 Method of Notification: Answering Service Comments:: older adult social work specialist notified Elsa ARANGO navigator. Reason For Visit: ALCOHOL ABUSE Diagnosis Discharge Diagnosis (1) Alcohol abuse: Status: Acute Code(s): F10.10 - Alcohol abuse, uncomplicated Medications at Discharge Home Medications Jordyn Back and Body 2 tab PO DAILY PRN 09/24/21 buspirone 15 mg PO BID 09/24/21 gabapentin 400 mg PO TID 09/24/21 olanzapine [Zyprexa] 5 mg PO BID 09/24/21 folic acid 1 mg PO DAILY@0800 #30 tab 09/27/21 thiamine HCl (vitamin B1) [Vitamin B-1] 100 mg PO DAILYCM #30 tab 09/27/21 Hospital Course Summary of Care Provided Hospital Course: This 40-year-old female admitted for acute alcohol withdrawal syndrome with history of chronic alcohol use disorder, dependence and tolerance. She she has history of chronic alcohol use since age of 14. 1. Acute alcohol withdrawal syndrome with chronic alcohol use disorder with dependence and tolerance: Patient is being admitted on MedSurg floor. On phenobarbitone along with other adjunctive supportive medications as needed for control of symptoms. 180s been consulted. On nicotine patch. On CIWA monitoring 2. Patient also with history of chronic nicotine use/cigarette smoking, PTSD, bipolar disorder and mild obesity grade 1. 3. DVT prophylaxis, low risk: Early ambulation encouraged. No prophylaxis indicated Patient states he has history of liver failure. Labs done here shows total bilirubin 0.3, ALT AST alkaline phosphatase within normal limit. Albumin 3.8., Platelet count 204,000. Labs did not suggest alcoholic hepatitis or biochemical features of cirrhosis. CBC within normal limit. She does not have any imaging study in our system. Discharge medication reconciliation done. Discharge follow-up instructions completed. Discharge process discussed with the patient and all questions were answered to patient's satisfaction. Patient is discharged to [facility] where she lives for past 40 to 50 days. Total time spent, exact 35 minutes on discharge meds reconciliation, examination, coordination of care with nurses and ancillary staff, review of imaging and blood test and discussion with the patient on follow-up instructions. Physical Exam Narrative Physical exam General: Alert, Oriented x3, Cooperative HEENT: Atraumatic, PERRLA, EOMI, Normocephalic Oral: No Gingival or Mucosal Lesions/ Ulcerations Neck: Supple, No JVD, Negative Carotid Bruits Lungs: Air entry diminished in bilateral lung bases. No crepitation/rhonchi Cardiovascular: Regular rate, Regular Rhythm, Normal S1, Normal S2, No murmurs Abdomen: Bowel Sounds Present, Soft, Non Tender, Non-Distended : No renal angle tenderness. No suprapubic tenderness. Extremities: No edema, Capillary Refill Less than 3 Seconds Skin: No rashes, No breakdown Musculoskeletal: No Tenderness to Palpation of Joints or Extremities Neurological: Cranial nerves II-XII grossly intact, DTR 2+/4 and Symmetrical, Neuro grossly intact Psych/Mental Status: Flat affect. Medical Records Data Medical Nutrition Assessment Dietitian: Malnutrition Criteria Met Start: 09/25/21 11:54 Freq: Status: Active Protocol: Document 09/25/21 11:56 RMA (Rec: 09/25/21 11:56 RMA [id number]) Nutrition Malnutrition Evidence of Malnutrition Exists Yes Malnutrition (severe): Social/Behavioral/ Environmental Evidenced By Suboptimal Energy Intake ( Severe),Weight Loss (Severe) Clinical Problem Chronic Disease or Condition Related Malnutrition Etiology Severe protein-calorie malnutrition in the context of social circumstance related to inadequate oral intake and alcohol abuse Signs/Symptoms as evidenced by ~10% wt loss x past 1-2 months per patient report and PO meeting less than 50% estimated nutrition needs Status Active Problem Recommendation Dietitian Recommendations/Changes Continue regular diet with snacks between meals as per ALMA Early. ONS if PO fails at meals, pt does not want any at this time . Encouraged increased intake of milk and chocolate milk since patient is refusing ensure. Weight / BMI Weight Weight: 181 lb 3.52 oz Body Mass Index (BMI) 31.1 ABG / Lab / Microbiology Data Result Diagrams: 09/26/21 04:19 09/26/21 04:19 D/C Instructions Discharge Diet: No restrictions Weight Bearing Status: Weight bearing as tolerated Call your doctor if you observe: Fever of 101 or Higher, Coldness, Increased Pain, Numbness or Tingling, Change in Color, Inability to urinate, Inability to have a bowel movement, Using more than 1 pad per hour, Shortness of breath, Dizziness, Fainting spells, Swelling in the ankles, Chest pain, Prolonged h iccupping, Increased palpitations (irregular heartbeat), Calf discomfort and Uncontrolled pain Meaningful Use Info Meaningful Use Diagnoses (Choose all that apply): None applicable Discharge Plan Admission Admit Date/Time: 09/24/21 14:34 Primary Reason for Your Visit: Acute alcohol withdrawal syndrome Attending Provider: Camden Rousseau Primary Care Provider: Care Physician,No Primary Consulting Providers: Fernando Metcalf ; Ceci Roman ; Gita Lara Discharge Orders/Prescriptions Prescriptions: New thiamine HCl (vitamin B1) [Vitamin B-1] 100 mg Tablet 100 mg PO DAILYCM Qty: 30 RF: 2 folic acid 1 mg Tablet 1 mg PO DAILY@0800 Qty: 30 RF: 2 Continued gabapentin 400 mg Capsule 400 mg PO TID RF: 0 olanzapine [Zyprexa] 5 mg Tablet 5 mg PO BID RF: 0 buspirone 15 mg Tablet 15 mg PO BID RF: 0 Jordyn Back and Body 500-32.5 mg Tablet 2 tab PO DAILY PRN (Reason: Pain) RF: 0 Referrals / Follow Up: Care Physician,No Primary [Primary Care Provider] - NOT,DEFINED [NON-STAFF] - Disposition Disposition (needs filled in before D/C Order can be placed): Home, Self Care Charges/Coding Visit Charges Inpatient E&M: 41354 Disch Hosp
== END 2021-09-27 10:30 | disposition home or self-care (01) | DRG 775 ==
LOC: ED 14:20 → MS3 09-25 06:53
PROVIDERS: Physician Assistant; Admitting Provider Internal Medicine; Emergency Provider Emergency Medicine; Visit Provider Internal Medicine
DX: F10.239 Alcohol dependence with withdrawal, unspecified (principal); E43 Unspecified severe protein-calorie malnutrition; F31.9 Bipolar disorder, unspecified; F17.210 Nicotine dependence, cigarettes, uncomplicated; M79.10 Myalgia, unspecified site; F41.9 Anxiety disorder, unspecified; G89.29 Other chronic pain; F43.10 Post-traumatic stress disorder, unspecified; Z79.82 Long term (current) use of aspirin; E66.9 Obesity, unspecified; Y90.1 Blood alcohol level of 20-39 mg/100 ml; Z68.33 Body mass index [BMI] 33.0-33.9, adult
CPT/HCPCS: 36415; 80048; 80053; 80307; 81001; 82077; 84703; 85025; 97802; 99284; A4216; J2405